=== PATIENT | male | born 1995 ===

== ENCOUNTER 2024-02-16 10:37 | Emergency (ER) | payer OTHER ==
[2024-02-16] MEDS: fentaNYL/Normal Saline 0 ML ONE (10:37)
[2024-02-16] MEDS: propofoL 0 ML ONE (10:37)
[2024-02-16] MEDS: Ketamine 500 mg/10 ML MDV ONE (10:37)
[2024-02-16] MEDS: Ondansetron 4 MG/2 ML SDV IVPUSH ONE (10:59)
[2024-02-16] MEDS: Morphine 2 MG/ML SYRINGE IVPUSH ONE (10:59)
[2024-02-16] MEDS: Acetaminophen 500 MG Tab PO ONE (11:00)
[2024-02-16] MEDS: Diphtheria,Pertussis(Acell),Tetanus Vaccine 0.5 ML Syringe IM ONE (11:20)
[2024-02-16] MEDS ORDERED: Sodium Chloride 0.9% 10 ML Syringe FLUSH PRN (11:47)
[2024-02-16 11:57] LABS: BASOPHILS ABSOLUTE AUTO 0.05 K/uL (0.00-0.20); BASOPHILS PERCENT AUTO 0.5 % (0.0-1.0); EOSINOPHILS ABSOLUTE AUTO 0.07 K/uL (0.00-0.45); EOSINOPHILS PERCENT AUTO 0.7 % (0.0-6.0); HEMATOCRIT 41.8 % (42.0-52.0); HEMOGLOBIN 14.4 g/dL (14.0-18.0); IMMATURE GRAN ABSOLUTE AUTO 0.02 K/uL (0.00-0.05); IMMATURE GRAN PERCENT AUTO 0.2 % (0.0-0.4); LYMPHOCYTES ABSOLUTE AUTO 2.19 K/uL (1.00-4.80); LYMPHOCYTES PERCENT AUTO 20.6 % (24.0-44.0); MEAN CORPUSCULAR HEMOGLOBIN 28.9 pg (28.0-32.0); MEAN CORPUSCULAR HGB CONC 34.4 g/dL (32.0-36.0); MEAN CORPUSCULAR VOLUME 83.9 fL (83.0-99.0); MEAN PLATELET VOLUME 10.2 fL (9.4-12.4); MONOCYTES ABSOLUTE AUTO 0.55 K/uL (0.00-0.80); MONOCYTES PERCENT AUTO 5.2 % (0.0-8.0); NEUTROPHILS ABSOLUTE AUTO 7.77 K/uL (1.80-7.70); NEUTROPHILS PERCENT AUTO 72.8 % (41.0-71.0); PLATELET COUNT,PLT 252 K/uL (150-400); RED BLOOD CELL COUNT 4.98 M/uL (4.52-5.90); WHITE BLOOD CELL COUNT,WBC 10.65 K/uL (3.9-11.3)
[2024-02-16 12:10] LABS: A/G RATIO 1.1 (0.9-1.6); BILIRUBIN TOTAL 0.4 mg/dL (0.2-1.0); CALCIUM 9.1 mg/dL (8.5-10.1); CARBON DIOXIDE,CO2 27.6 mmol/L (21.0-32.0); CREATININE 1.1 mg/dL (0.8-1.3); EST CRCL DRUG DOSING (CG) 111.98 mL/min; MAGNESIUM 1.7 mg/dL (1.8-2.4); POTASSIUM,K 3.8 mmol/L (3.5-5.1); PROTEIN TOTAL,TP 7.6 g/dL (6.4-8.2)
[2024-02-16] MEDS: Sodium Chloride 0.9% 1,000 ML IV SCH (12:21)
[2024-02-16] MEDS: ceFAZolin 1 GM in Sodium Chloride 0.9% 50 ML IV ONE (12:39)
== END 2024-02-16 13:15 ==
LOC: MW.ED 10:37
DX: S02.85XA Fracture of orbit, unspecified, initial encounter for closed fracture (principal); S06.5X2A Traumatic subdural hemorrhage with loss of consciousness of 31 minutes to 59 minutes, initial encounter; S02.92XA Unspecified fracture of facial bones, initial encounter for closed fracture; Z23 Encounter for immunization; X58.XXXA Exposure to other specified factors, initial encounter
CPT/HCPCS: 36415; 70450; 70486; 71045; 72125; 80053; 83735; 85025; 85610; 86850; 86900; 86901; 90471; 90715; 93005; 96365; 96375; 99285; A9270; J0690; J1953; J2270; J2405; J3490; J7030; J7060; 93010; 99284